=== PATIENT | male | born 1980 | race African-American/Black ===

== ENCOUNTER 2021-04-28 00:34 | Emergency (ER) | payer MEDICAID ==
[~2021-04-28] VITALS: Ht 190.5 cm; Wt 113.0 kg
[~2021-04-28 00:34] MED LIST: EC
[2021-04-28 00:43] VITALS: BP 165/117
[2021-04-28] MEDS ORDERED: CHLO473M2 MT (01:11)
[2021-04-28] MEDS ORDERED: ACET-2708 MT (01:11)
[2021-04-28] MEDS ORDERED: AMOX-424 MT (01:11)
[2021-04-28] MEDS ORDERED: NAPR-1176 MT (01:11)
[2021-04-28] MEDS ORDERED: ACETAMINOPHEN 325MG TABLET PO ONE (01:15)
== END 2021-04-28 01:31 | disposition home or self-care (01) ==
LOC: ER 00:34
DX: K04.7 Periapical abscess without sinus (principal); F17.290 Nicotine dependence, other tobacco product, uncomplicated; F14.10 Cocaine abuse, uncomplicated; Z79.899 Other long term (current) drug therapy; Z98.890 Other specified postprocedural states
CPT/HCPCS: 99282

== ENCOUNTER 2021-08-19 18:12 | Emergency (ER) | payer MEDICAID ==
[~2021-08-19] VITALS: Ht 193 cm; Wt 122.0 kg
[~2021-08-19 18:12] MED LIST changes: +ACET-2708 MT; +AMOX-424 MT; +CHLO473M2 MT; +NAPR-1176 MT
[2021-08-19] MEDS ORDERED: IBUP-2028 MT (18:43)
[2021-08-19] MEDS ORDERED: AMOX-494 MT (18:43)
[2021-08-19] MEDS ORDERED: IBUPROFEN 400MG TABLET PO ONE (18:45)
[2021-08-19 19:02] VITALS: BP 160/110
== END 2021-08-19 19:05 | disposition home or self-care (01) ==
LOC: ER 18:12
DX: K04.7 Periapical abscess without sinus (principal); L02.01 Cutaneous abscess of face; R03.0 Elevated blood-pressure reading, without diagnosis of hypertension; F14.90 Cocaine use, unspecified, uncomplicated
CPT/HCPCS: 87070; 87430; 99283

== ENCOUNTER 2021-09-25 19:15 | Emergency (ER) | payer MEDICAID ==
[~2021-09-25] VITALS: Ht 190.5 cm; Wt 122.0 kg
[~2021-09-25 19:15] MED LIST changes: +AMOX-494 MT; +IBUP-2028 MT
[2021-09-25] MEDS ORDERED: LIDOCAINE HCL/EPINEPHRINE 1%-EPI 1:100,000 20 ML VIAL INFIL ONE (21:15)
[2021-09-25] MEDS ORDERED: LIDOCAINE HCL 1% 20ML VIAL (Pyxis) INJ INFIL ONE (21:15)
[2021-09-25] MEDS ORDERED: BACITRACIN ZINC OINT UDPKT TOP ONE (21:15)
[2021-09-25] MEDS ORDERED: CEFTRIAXONE SODIUM 1 G/VIAL IM ONE (21:15)
[2021-09-25] MEDS ORDERED: HYDROCODONE/ACETAMINOPHEN 5/325MG TABLET PO ONE (21:30)
[2021-09-25] MEDS ORDERED: IBUPROFEN 400MG TABLET PO ONE (21:30)
[2021-09-25] MEDS ORDERED: LIDOCAINE HCL/EPINEPHRINE 1%-EPI 1:100,000 10 ML VIAL INFIL ONE (22:00)
[2021-09-25] MEDS ORDERED: HYDR-4001 MT (22:01)
[2021-09-25] MEDS ORDERED: IBUP-2028 MT (22:01)
[2021-09-25] MEDS ORDERED: AMOX-424 MT (22:02)
[2021-09-25 22:54] VITALS: BP 120/65
== END 2021-09-25 22:56 | disposition home or self-care (01) ==
LOC: ER 19:15
DX: K04.7 Periapical abscess without sinus (principal); L03.211 Cellulitis of face; F14.10 Cocaine abuse, uncomplicated
CPT/HCPCS: 10060; 96372; 99283; J0696; J3490; Z7610

== ENCOUNTER 2021-10-31 18:11 | Emergency (ER) | payer MEDICAID ==
[~2021-10-31] VITALS: Ht 190.5 cm; Wt 121.0 kg
[~2021-10-31 18:11] MED LIST changes: +HYDR-4001 MT
[2021-10-31] MEDS ORDERED: IBUP-2029 MT (19:21)
[2021-10-31 19:30] VITALS: BP 138/95
[2021-10-31] MEDS ORDERED: DEXAMETHASONE 2MG TABLET PO ONE (19:30)
[2021-10-31] MEDS ORDERED: DEXAMETHASONE 6MG TABLET PO NR (19:30)
== END 2021-10-31 19:45 | disposition home or self-care (01) ==
LOC: ER 18:11
DX: J03.90 Acute tonsillitis, unspecified (principal); F14.10 Cocaine abuse, uncomplicated; F17.210 Nicotine dependence, cigarettes, uncomplicated
CPT/HCPCS: 87070; 87430; 99283; J8540

== ENCOUNTER 2021-11-07 20:48 | Emergency (ER) | payer MEDICAID, OTHER ==
[~2021-11-07] VITALS: Ht 193 cm; Wt 120.0 kg
[~2021-11-07 20:48] MED LIST changes: +IBUP-2029 MT
[2021-11-07 21:43] VITALS: BP 155/90
[2021-11-07] MEDS ORDERED: PENI500T MT (22:27)
[2021-11-07] MEDS ORDERED: IBUP-2029 MT (22:27)
[2021-11-07] MEDS ORDERED: AMOXICILLIN 500 MG CAPSULE PO ONE (22:30)
[2021-11-07] MEDS ORDERED: KETOROLAC 60MG/2ML VIAL IM ONE (22:30)
== END 2021-11-07 23:36 | disposition home or self-care (01) ==
LOC: ER 20:48
DX: K08.89 Other specified disorders of teeth and supporting structures (principal); F14.10 Cocaine abuse, uncomplicated
CPT/HCPCS: 96372; 99283; J1885

== ENCOUNTER 2022-01-14 21:17 | Emergency (ER) | payer OTHER ==
[~2022-01-14] VITALS: Ht 190.5 cm; Wt 118.9 kg
[~2022-01-14 21:17] MED LIST changes: +PENI500T MT
[2022-01-15 02:02] VITALS: BP 136/84
[2022-01-15] MEDS ORDERED: KETOROLAC 30MG/ML VIAL IV STA (02:02)
[2022-01-15] MEDS ORDERED: SODIUM CHLORIDE 0.9% 1,000 ML IV ONE (02:15)
[2022-01-15] MEDS ORDERED: DEXAMETHASONE 4MG/ML 1ML VIAL IV ONE (02:30)
[2022-01-15] MEDS ORDERED: CLINDAMYCIN 600 MG in DEXTROSE 5% WATER 50 ML IV ONE (02:30)
[2022-01-15] MEDS ORDERED: CEFTRIAXONE 2 G PREMIX 50 ML IV ONE (02:30)
[2022-01-15] MEDS ORDERED: CLINDAMYCIN 600 MG PREMIX 50 ML IV NR (02:45)
[2022-01-15 03:09] LABS: BASOPHILS % 0.7 % (0.0-2.0); EOSINOPHILS % 2.1 % (0.0-5.0); HEMATOCRIT. 47.5 % (42.0-52.0); HEMOGLOBIN. 16.2 g/dL (14.0-18.0); LYMPHOCYTES % 28.9 % (20.0-50.0); MEAN CORPUSCULAR HEMOGLOBIN 31.5 pg (28.0-32.0); MEAN CORPUSCULAR VOLUME 92.4 fL (80.0-94.0); MEAN PLATELET VOLUME 8.8 fl (7.4-10.4); MONOCYTES % 11.5 % (2.0-8.0); NEUTROPHILS % 56.8 % (40.0-76.0); PLATELET 194 x1000/uL (130-400); RED BLOOD CELL COUNT 5.14 mill/uL (4.7-6.1); RED CELL DISTRIBUTION WIDTH 15.4 % (11.6-14.6)
[2022-01-15 03:11] LABS: CHLORIDE 109 mEq/L (98-107)
[2022-01-15] MEDS ORDERED: IOHEXOL-300 100 ML BOTTLE ONE (04:29)
[2022-01-15] MEDS ORDERED: CLIN300C12 MT (06:07)
== END 2022-01-15 07:11 | disposition home or self-care (01) ==
LOC: ER 21:17
DX: J36 Peritonsillar abscess (principal); F14.10 Cocaine abuse, uncomplicated
CPT/HCPCS: 36415; 70491; 80053; 84484; 85025; 96365; 96366; 96375; 99285; J0696; J1100; J1885; J3490; J7030; J7060; Q9967

== ENCOUNTER 2023-05-20 19:30 | Emergency (ER) | payer MEDICAID, OTHER ==
[~2023-05-20] VITALS: Ht 190.5 cm; Wt 118.0 kg
[~2023-05-20 19:30] MED LIST changes: +CLIN-194 MT
[2023-05-20 19:58] VITALS: BP 137/81; O2SAT 100
[2023-05-21] MEDS ORDERED: GUAIFENESIN 600MG ER TABLET PO ONE (00:45)
[2023-05-21] MEDS ORDERED: ACETAMINOPHEN 325MG TABLET PO ONE (00:45)
[2023-05-21] MEDS ORDERED: ACETAMINOPHEN 325MG TABLET PO NR (03:30)
[2023-05-21] MEDS ORDERED: PREDNISONE 20MG TABLET PO STA (03:59)
[2023-05-21] MEDS ORDERED: IPRATROPIUM BROMIDE (0.02%) 0.5MG/2.5ML NEB HHN STA (03:59)
[2023-05-21] MEDS ORDERED: ALBUTEROL (0.083%) 2.5MG/3ML NEB HHN STA (03:59)
[2023-05-21 05:38] LABS: BASOPHILS % 0.6 % (0.0-2.0); EOSINOPHILS % 3.2 % (0.0-5.0); HEMATOCRIT. 51.6 % (42.0-52.0); HEMOGLOBIN. 17.1 g/dL (14.0-18.0); LYMPHOCYTES % 29.1 % (20.0-50.0); MEAN CORPUSCULAR HEMOGLOBIN 31.2 pg (28.0-32.0); MEAN CORPUSCULAR HGB CONC 33.1 g/dL (31.0-37.0); MEAN CORPUSCULAR VOLUME 94.2 fL (80.0-94.0); MEAN PLATELET VOLUME 8.3 fl (7.4-10.4); MONOCYTES % 12.6 % (2.0-8.0); NEUTROPHILS % 54.5 % (40.0-76.0); PLATELET 160 x1000/uL (130-400); RED BLOOD CELL COUNT 5.48 mill/uL (4.7-6.1); RED CELL DISTRIBUTION WIDTH 17.4 % (11.6-14.6)
[2023-05-21 05:45] LABS: CHLORIDE 108 mEq/L (98-107); INDEX HEMOLYSI 1 (1-3); INDEX ICTERIC 1 (1-4); INDEX LIPEMIC 1 (1-3); POTASSIUM 3.6 mEq/L (3.5-5.1); SODIUM 138 mEq/L (136-145)
[2023-05-21 05:49] LABS: DIFFERENTIAL COMMENT 1
[2023-05-21 05:55] LABS: ALANINE AMINOTRANSFERASE 25 IU/L (13-61); ALBUMIN 3.3 g/dL (3.4-5.0); ASPARTATE AMINOTRANSFERASE 9 IU/L (15-37); BILIRUBIN TOTAL 0.5 mg/dL (0.1-1.0); CALCIUM 8.7 mg/dL (8.5-10.1); CARBON DIOXIDE 25 mEq/L (21-32); GLUCOSE 145 mg/dL (70-105); PROTEIN TOTAL 8.7 g/dL (6.0-8.3); UREA NITROGEN BLOOD 8 mg/dL (7-21)
[2023-05-21] MEDS ORDERED: GUAI600T26 MT (05:58)
[2023-05-21] MEDS ORDERED: ACET-2708 MT (05:58)
[2023-05-21] MEDS ORDERED: ALBU6.7H3 INH (05:58)
[2023-05-21] MEDS ORDERED: MED4 MT (06:03)
[2023-05-21 07:04] VITALS: PULSE 106; RESP 18; TEMP 99.9
== END 2023-05-21 07:07 | disposition home or self-care (01) ==
LOC: ER 19:30
DX: J20.8 Acute bronchitis due to other specified organisms (principal); B34.9 Viral infection, unspecified; F19.90 Other psychoactive substance use, unspecified, uncomplicated; Z79.899 Other long term (current) drug therapy; Z20.822 Contact with and (suspected) exposure to COVID-19
CPT/HCPCS: 99284; 80053; 85025; 87804 ×2; 36415; 71045; 87426; J7512; Z7610; C9803

== ENCOUNTER 2023-06-25 06:42 | Emergency (ER) | payer MEDICAID ==
[~2023-06-25] VITALS: Ht 193 cm; Wt 121.4 kg
[~2023-06-25 06:42] MED LIST changes: +ALBU6.7H3 INH; +GUAI600T26 MT; +MED4 MT
[2023-06-25 06:51] VITALS: BP 130/56; TEMP 98.9; O2SAT 96
[2023-06-25 11:17] VITALS: PULSE 89; RESP 16
[2023-06-25] MEDS ORDERED: CEPH500C2 MT (11:22)
[2023-06-25] MEDS ORDERED: SULF1TAB48 MT (11:23)
[2023-06-26 08:09] LABS: HIV SCREEN 4G Non Reactive (Non Reactive)
[2023-06-27 04:08] LABS: CHLAMYDIA TRACHOMATIS NAA Negative (Negative); NEISSERIA GONORRHOEAE NAA Negative (Negative)
== END 2023-06-25 11:15 | disposition home or self-care (01) ==
LOC: ER 06:42
DX: M79.604 Pain in right leg (principal); Z79.899 Other long term (current) drug therapy; V49.9XXA Car occupant (driver) (passenger) injured in unspecified traffic accident, initial encounter; Y93.89 Activity, other specified; Y92.89 Other specified places as the place of occurrence of the external cause; Y99.8 Other external cause status
CPT/HCPCS: 86592; 87389; 87491; 87591; 93971; 99284

== ENCOUNTER 2023-07-22 00:45 | Emergency (ER) | payer MEDICAID ==
[~2023-07-22] VITALS: Ht 190.5 cm; Wt 121.0 kg
[~2023-07-22 00:45] MED LIST changes: +CEPH500C2 MT; +SULF1TAB48 MT
[2023-07-22 01:12] VITALS: O2SAT 97
[2023-07-22] MEDS ORDERED: IBUPROFEN 600MG TABLET PO STA (02:41)
[2023-07-22 03:08] LABS: CLARITY URINE CLEAR (CLEAR); COLOR URINE YELLOW (YELLOW); GLUCOSE URINE NEGATIVE (NEGATIVE); KETONES URINE NEGATIVE (NEGATIVE); LEUKOCYTE ESTERASE URINE NEGATIVE (NEGATIVE); NITRITE URINE NEGATIVE (NEGATIVE); OCCULT BLOOD URINE TRACE (NEGATIVE); PROTEIN URINE NEGATIVE (NEGATIVE); SPECIFIC GRAVITY URINE 1.019 (1.005-1.030)
[2023-07-22 03:11] LABS: BACTERIA URINE NONE SEEN; SQUAMOUS EPITHELIAL CELL URINE NONE SEEN /lpf (RARE/1+); WBC URINE 0-2 /hpf (0-2); YEAST URINE NONE SEEN
[2023-07-22 03:23] LABS: *AMPHETAMINES SCREEN URINE NEGATIVE (NEGATIVE); *BARBITURATES SCREEN URINE NEGATIVE (NEGATIVE); *BENZODIAZEPINES SCREEN URINE NEGATIVE (NEGATIVE); *COCAINE SCREEN URINE NEGATIVE (NEGATIVE); CANNABINOID URINE SCREEN PRESUMPTIVE POSITIVE (NEGATIVE); ECSTASY MDMA SCREEN URINE NEGATIVE (NEGATIVE); METHADONE URINE SCREEN Neg (NEGATIVE); OPIATES URINE SCREEN NEGATIVE (NEGATIVE); PHENCYCLIDINE URINE SCREEN PRESUMTIVE POSITIVE (NEGATIVE)
[2023-07-22] MEDS ORDERED: GUAI600T26 MT (03:49)
[2023-07-22] MEDS ORDERED: ALBU6.7H15 INH (03:49)
[2023-07-22 04:20] LABS: BASOPHILS % 0.6 % (0.0-2.0); EOSINOPHILS % 3.3 % (0.0-5.0); HEMATOCRIT. 48.9 % (42.0-52.0); HEMOGLOBIN. 16.1 g/dL (14.0-18.0); LYMPHOCYTES % 27.4 % (20.0-50.0); MEAN CORPUSCULAR HEMOGLOBIN 31.7 pg (28.0-32.0); MEAN PLATELET VOLUME 8.2 fl (7.4-10.4); MONOCYTES % 10.2 % (2.0-8.0); NEUTROPHILS % 58.5 % (40.0-76.0); PLATELET 167 x1000/uL (130-400); RED BLOOD CELL COUNT 5.09 mill/uL (4.7-6.1); RED CELL DISTRIBUTION WIDTH 15.5 % (11.6-14.6); WHITE BLOOD COUNT 5.5 x1000/uL (4.5-11.0)
[2023-07-22 04:28] VITALS: BP 137/89
[2023-07-22 04:33] VITALS: PULSE 95; RESP 16; TEMP 98.1
[2023-07-22 04:34] LABS: ALANINE AMINOTRANSFERASE 25 IU/L (10-49); ALBUMIN 3.8 g/dL (3.2-4.8); ASPARTATE AMINOTRANSFERASE 18 IU/L (<34); BILIRUBIN TOTAL 0.5 mg/dL (0.1-1.0); CALCIUM 8.7 mg/dL (8.7-10.4); CARBON DIOXIDE 26 mEq/L (21-32); CHLORIDE 107 mEq/L (98-107); CREATININE 0.9 mg/dL (0.6-1.3); GLUCOSE 111 mg/dL (70-105); POTASSIUM 3.8 mEq/L (3.5-5.1); PROTEIN TOTAL 7.4 g/dL (6.0-8.3); SODIUM 139 mEq/L (136-145); UREA NITROGEN BLOOD 8 mg/dL (9-23)
[2023-07-22 04:49] LABS: ETHANOL BLOOD < 10 mg/dL (<10)
== END 2023-07-22 04:35 | disposition home or self-care (01) ==
LOC: ER 00:45
DX: J06.9 Acute upper respiratory infection, unspecified (principal); F12.929 Cannabis use, unspecified with intoxication, unspecified; Z20.822 Contact with and (suspected) exposure to COVID-19; Z79.899 Other long term (current) drug therapy
CPT/HCPCS: 80053; 80305; 81003; 80320; 87430; 85025; 87070; 87804 ×2; 36415; 71045; 99284; 87426; C9803; G0480

== ENCOUNTER 2024-01-18 04:34 | Emergency (ER) | payer SELFPAY ==
[~2024-01-18] VITALS: Ht 190.5 cm; Wt 112.7 kg
[~2024-01-18 04:34] MED LIST changes: +ALBU6.7H15 INH
[2024-01-18 05:10] VITALS: BP 146/95; PULSE 100; RESP 20; TEMP 98.2; O2SAT 98
[2024-01-18] MEDS ORDERED: IBUP-2028 PO (06:42)
[2024-01-18] MEDS ORDERED: OFLO5DRO4 LEFT EAR (06:42)
== END 2024-01-18 07:14 | disposition home or self-care (01) ==
LOC: ER 05:06
DX: S62.314A Displaced fracture of base of fourth metacarpal bone, right hand, initial encounter for closed fracture (principal); H60.8X2 Other otitis externa, left ear; Z98.890 Other specified postprocedural states; Z79.899 Other long term (current) drug therapy; X58.XXXA Exposure to other specified factors, initial encounter; Y93.89 Activity, other specified; Y92.89 Other specified places as the place of occurrence of the external cause; Y99.8 Other external cause status
CPT/HCPCS: 71045; 73120; 99284

== ENCOUNTER 2024-02-10 00:28 | Emergency (ER) | payer SELFPAY ==
[~2024-02-10] VITALS: Ht 190.5 cm; Wt 122.0 kg
[~2024-02-10 00:28] MED LIST changes: +IBUP-2028 PO; +OFLO5DRO4 LEFT EAR
[2024-02-10 00:52] VITALS: BP 140/82; PULSE 100; RESP 18; TEMP 98.5; O2SAT 98
[2024-02-10] MEDS ORDERED: BO1 TP (01:41)
== END 2024-02-10 01:50 | disposition home or self-care (01) ==
LOC: ER 00:41
DX: Z13.89 Encounter for screening for other disorder (principal)
CPT/HCPCS: 99282

== ENCOUNTER 2024-02-10 18:13 | Emergency (ER) | payer OTHER ==
[~2024-02-10 18:13] MED LIST changes: +BO1 TP
== END 2024-02-10 18:52 | disposition left against medical advice (07) ==
LOC: ER 18:13
DX: Z53.21 Procedure and treatment not carried out due to patient leaving prior to being seen by health care provider (principal)

== ENCOUNTER 2024-02-10 18:56 | Emergency (ER) | payer OTHER ==
[~2024-02-10] VITALS: Ht 190.5 cm; Wt 122.0 kg
[2024-02-10 19:01] VITALS: BP 145/100; PULSE 100; RESP 16; TEMP 98; O2SAT 98
== END 2024-02-10 20:00 | disposition left against medical advice (07) ==
LOC: ER 18:56
DX: R07.0 Pain in throat (principal); Z53.21 Procedure and treatment not carried out due to patient leaving prior to being seen by health care provider
CPT/HCPCS: 99281